=== PATIENT | female | born 1970 | race Caucasian/White ===

== ENCOUNTER 2017-06-03 07:09 | Observation (INO) | payer OTHER ==
--- NOTE | 2017-06-03 06:50 | PDHPUP ---
History & Physical Update H&P update statement: This history and physical update is based on an assessment of the patient which was completed after admission or registration (within 24 hours), but prior to the surgery/procedure. updated
[2017-06-03] MEDS ORDERED: ceFAZolin 2 GM/SWFI 2 GM/20 ML SYR IVP ONE (07:20)
[2017-06-03] MEDS ORDERED: LR 1,000 ML IV ONE (07:21)
[2017-06-03] MEDS ORDERED: LIDOCAINE 1% 2 ML INJ ID PRN (07:21)
[2017-06-03] MEDS ORDERED: BUPIVACAINE 0.5% 30 ML SDV ONE (07:39)
[2017-06-03] MEDS ORDERED: THROMBIN (BOVINE) 5,000 UNIT VIAL TP ONE (07:39)
[2017-06-03] MEDS ORDERED: ACETAMINOPHEN 325 MG TAB PO ONE (08:00)
--- NOTE | 2017-06-03 08:55 | PDANEPAE ---
ANE Past Medical History - Cardiovascular History Hx Hypertension: No Hx Arrhythmias: No Hx Chest Pain: No Hx Coronary Artery / Peripheral Vascular Disease: No Hx CHF / Valvular Disease: No Hx Palpitations: No Cardiovascular History Comment: WHEN LAYING DOWN INTERMITTENT LT. SHLDR/CHEST PAINS LAST 6 MONTHS RANDOM FEELING BY DOCTORS IS RELATED TO WHATS GOING ON WITH HER THYROID - Pulmonary History Hx COPD: No Hx Asthma/Reactive Airway Disease: Yes Hx Recent Upper Respiratory Infection: No Hx Oxygen in Use at Home: No Hx Sleep Apnea: No Sleep Apnea Screening Result - Last Documented: Negative Pulmonary History Comment: ASTHMA TRIGGERS SEVER URI. PNEUMONIOA 2016 - Neurologic History Hx Cerebrovascular Accident: No Hx Seizures: No Hx Dementia: No - Endocrine History Hx Diabetes: No Endocrine History Comment: HYPERTHYROIDISM - Renal History Hx Renal Disorders: No - Liver History Hx Hepatic Disorders: No - Neurological & Psychiatric Hx Hx Neurological and Psychiatric Disorders: No - Cancer History Hx Cancer: No - Congenital Disorder History Hx Congenital Disorders: No - GI History Hx Gastrointestinal Disorders: No Gastrointestinal History Comment: INTERMITTENT REFLUX - Chronic Pain History Chronic Pain: No - Surgical History Prior Surgeries: TUBAL LIGATION . RT KNEE SCOPE. LT KNEE REMVL BURSA. JONAS BREAST AUGMENTATION. TONSILLECTOMY ANE Review of Systems Review of Systems: - Exercise capacity METS (RN): 4 METS ANE Patient History - Allergies Allergies/Adverse Reactions: morphine Allergy (Verified 05/31/17 16:35) Hives/ Severe vomiting - Home Medications Home Medications: Acetaminophen [Tylenol 325mg (*)] 650 mg PO Q6 PRN 05/31/17 [Last Taken 05/30/17 ] Ascorbic Acid [Vitamin C 500 mg (*)] 2,000 mg PO DAILY 05/31/17 [Last Taken 12/12] Methimazole [Northyx] 20 mg PO DAILY 05/31/17 [Last Taken 06/01/17] - NPO status NPO Since - Liquids (Date): 06/02/17 NPO Since - Liquids (Time): 22:00 NPO Since - Solids (Date): 06/02/17 NPO Since - Solids (Time): 19:00 - Smoking Hx Smoking Status: Never smoked ANE Labs/Vital Signs - Vital Signs Blood Pressure: 125/78 Heart Rate: 68 Respiratory Rate: 16 O2 Sat (%): 97 Height: 153.67 cm Weight: 69.853 kg ANE Physical Exam - Airway Mallampati Score: Class 2 - ASA Status ASA Status: II ANE Anesthesia Plan Anesthesia Plan: general endotracheal anesthesia
[2017-06-03] MEDS ORDERED: ROCURONIUM 50 MG/5 ML VIAL ONE (09:08)
[2017-06-03] MEDS ORDERED: DEXAMETHASONE 4 MG/ML VIAL ONE ×3 (09:08→09:33)
[2017-06-03] MEDS ORDERED: ONDANSETRON 4 MG/2 ML VIAL ONE ×3 (09:08→12:26)
[2017-06-03] MEDS ORDERED: LIDOCAINE 2% 100 MG/5 ML SYR ONE (09:08)
[2017-06-03] MEDS ORDERED: fentaNYL 250 MCG/5 ML INJ ONE (09:09)
[2017-06-03] MEDS ORDERED: PROPOFOL 200 MG/20 ML VIAL ONE (09:09)
[2017-06-03] MEDS ORDERED: MIDAZOLAM 2 MG/2 ML VIAL ONE (09:11)
[2017-06-03] MEDS ORDERED: METOCLOPRAMIDE 10 MG/2 ML VIAL ONE (09:33)
[2017-06-03] MEDS ORDERED: THROMBIN (BOVINE) 20,000 UNIT SPRAY TP ONE (10:34)
[2017-06-03] MEDS ORDERED: OXYCODONE/APAP 5/325 TAB PO PRN (10:56)
[2017-06-03] MEDS ORDERED: MEPERIDINE 25 MG/ML SYR IVP PRN (11:08)
[2017-06-03] MEDS ORDERED: NALOXONE HCL 0.4 MG/ML INJ IVP PRN (11:08)
[2017-06-03] MEDS ORDERED: ALBUTEROL 3 ML DEYVIAL IH PRN (11:08)
[2017-06-03] MEDS ORDERED: PROMETHAZINE HCL 25 MG/ML INJ IVP PRN ×2 (11:08→13:44)
--- NOTE | 2017-06-03 11:09 | POSTANESTH ---
Post Anesthetic Evaluation Cardiovascular Status: Normal, Stable Respiratory Status: Normal, Stable Level of Consciousness/Mental Status: Can Participate in Eval Pain Control: Adequate, Prn Tx Ordered Nausea/Vomiting Control: Adequate, Prn Tx Ordered Complications Possibly Related to Anesthesia: None Noted
[2017-06-03] MEDS ORDERED: fentaNYL 100 MCG/2 ML INJ ONE ×3 (11:12→12:18)
[2017-06-03] MEDS: fentaNYL 100 MCG/2 ML INJ IVP PRN ×5 (11:14→12:31)
--- NOTE | 2017-06-03 11:26 | POSTOPPROG ---
Post Op Note Date of Operation: 06/03/17 Surgeon: Ector Faye Magazine Supervisor: Vahid Coburn Anesthesiologist: Dr Abreu Anesthesia: GET(General Endotracheal), IV Sedation Pre-op Diagnosis: hyperparathyroidism Post-op Diagnosis: same Indication: same Procedure: total thyroidectomy Findings: large thyroid Inf/Abcess present in the surg proc area at time of surgery?: No Depth: Organ Space EBL: 50-100 Specimen(s): thyroid
[2017-06-03] MEDS ORDERED: HYDROmorphONE/DILAUDID 1 MG/ML INJ ONE (11:54)
[2017-06-03] MEDS: HYDROmorphONE/DILAUDID 1 MG/ML INJ IVP PRN ×5 (11:55→19:30)
[2017-06-03] MEDS: ONDANSETRON 4 MG/2 ML VIAL IVP PRN ×2 (12:29→12:45)
[2017-06-03] MEDS ORDERED: KETOROLAC 30 MG/1 ML SDV ONE (12:44)
[2017-06-03] MEDS ORDERED: KETOROLAC 30 MG/1 ML SDV IVP ONE (12:45)
[2017-06-03] MEDS: D5W 1/2 NS W/ 20 KCl/L 1,000 ML IV SCH ×2 (14:19→22:26)
--- NOTE | 2017-06-03 21:41 | SOAPPROG ---
SOAP Progress Note Assessment/Plan: Assessment: Postop doing well/Chovstek neg negative/voice okay wound okay Plan: Home in the a.m. 06/03/17 21:39 Objective: Vital Signs Temp Pulse Resp BP Pulse Ox 36.4 C 84 16 103/64 93 06/03/17 19:16 06/03/17 19:16 06/03/17 19:16 06/03/17 19:16 06/03/17 19:16 06/02/17 06/03/17 06/04/17 05:59 05:59 05:59 Intake Total 1100 Output Total 10 Balance 1090 ICD10 Worksheet Patient Problems: Problems Problem Status Onset Hyperthyroidism Acute - ICD10 Problem Qualifiers (1) Hyperthyroidism
[2017-06-03] MEDS: HYDROCODONE/APAP 5/325 TAB PO PRN (22:26)
[2017-06-04] MEDS: HYDROCODONE/APAP 5/325 TAB PO PRN ×4 (04:49→19:40)
--- NOTE | 2017-06-04 05:32 | GOP ---
[f rep st] OPERATIVE REPORT DATE OF OPERATION: 06/03/2017 SURGEON: Ector Faye MD ELEVATOR [employer]CTOR SUPERVISOR: Vahid Coburn PA-C ANESTHESIOLOGIST: Dr. Abreu PREOPERATIVE DIAGNOSIS: Hyperthyroidism. POSTOPERATIVE DIAGNOSIS: Hyperthyroidism. PROCEDURE PERFORMED: Total thyroidectomy. FINDINGS: Patient was found to have benign-appearing goiters of the thyroid with no evidence of any malignancy. DESCRIPTION OF PROCEDURE: Patient was taken to the operating room where she received a satisfactory general endotracheal anesthesia by Dr. Abreu, placed in the supine position, prepped and draped in t he usual sterile fashion. A low collar-type incision was made. Incision was carried through the katie tysma and cutaneus-platysmal flaps were developed to the thyroid cartilage and to the sternal notch. Strap muscle was then divided in the midline and retracted. Both lobes of the thyroid were mobilize d by dividing the middle thyroid vein. Recurrent laryngeal nerves were identified on both sides. Parathyroid glands were dissected away from the thyroid capsule and dissection stayed directly on top of the thyroid capsule. Once the anatomy was delineated, the superior pole on both sides was divide d with the Harmonic scalpel, and the glands were dissected away from the nerve and off the anterior t rachea and to the midline. Hemostasis was carefully obtained, and the gland was removed and sent to Pathology. Hemostasis was assured with hemoclips, electrocautery, and the Harmonic scalpel. The wound was irrigated. Hemostasis was assured. Some topical thrombin was placed in the operative bed. Strap muscles approximated with 3-0 Vicryl. Platysma was closed with 3-0 Vicryl. The wound wa s infiltrated with 0.25% Marcaine. Skin was closed with 4-0 Monocryl subcuticular stitch. There wer e no complications. Blood loss was negligible. She was taken to recovery room in good condition hem ostatic. /[id number]/MODL
[2017-06-04] MEDS ORDERED: KETOROLAC 30 MG/1 ML SDV IVP ONE (10:00)
--- NOTE | 2017-06-04 10:30 | SOAPPROG ---
SOAP Progress Note Assessment/Plan: Assessment: Postop doing well/Chovstek neg negative/voice okay wound okay Plan: Home in the a.m. 06/03/17 21:39 06/04/17 10:29 not feeling great/ wound ok/ chovstek-/ ca 8.7/ will start synthroid Objective: Vital Signs Temp Pulse Resp BP Pulse Ox 36.9 C 64 16 105/63 94 06/04/17 07:14 06/04/17 07:14 06/04/17 07:14 06/04/17 07:14 06/04/17 07:14 06/03/17 06/04/17 06/05/17 05:59 05:59 05:59 Intake Total 1650 Output Total 10 Balance 1640 ICD10 Worksheet Patient Problems: Problems Problem Status Onset Hyperthyroidism Acute - ICD10 Problem Qualifiers (1) Hyperthyroidism
[2017-06-04] MEDS: LEVOTHYROXINE 100 MCG TAB PO SCH (10:40)
[2017-06-04] MEDS: KETOROLAC 15 MG/1 ML SDV IVP SCH ×2 (12:49→17:33)
[2017-06-04] MEDS: HYDROmorphONE/DILAUDID 1 MG/ML INJ IVP PRN (13:45)
--- NOTE | 2017-06-04 14:26 | ASMTCMCOM ---
CM Note CM Note Notes: 06/04/2017 Case Management Note Reviewed chart. There are no case management d/c needs identified d/t pt age, marital status and activity levels prior to admission. There are no PT or OT evals ordered at this time. Case Management d/c poc: Home independent when medically stable with follow up as directed. Case Management available if needs change. Date Signed: 06/04/2017 02:26 PM Electronically Signed By:Sulma Castillo RN
--- NOTE | 2017-06-04 14:36 | ASMTCMCOM ---
CM Note CM Note Notes: 06/04/2017 Case Management Note Pt referred to financial counseling to answer questions regarding insurance coverage. Date Signed: 06/04/2017 02:35 PM Electronically Signed By:Sulma Castillo RN
[2017-06-05] MEDS: KETOROLAC 15 MG/1 ML SDV IVP SCH ×3 (00:47→11:56)
[2017-06-05] MEDS: LEVOTHYROXINE 100 MCG TAB PO SCH (05:32)
[2017-06-05 08:25] VITALS: BP 124/67; PULSE 60; RESP 18; TEMP 98; O2SAT 94
[2017-06-05] MEDS: HYDROCODONE/APAP 5/325 TAB PO PRN (10:13)
--- NOTE | 2017-06-05 13:48 | ASDISCHSUM ---
Discharge Information Plan Status:Home with No Needs Medically Cleared to Leave: Discharge Date:06/05/2017 01:45 PM CM D/C Disposition:Home, Routine, Self-Care ADT D/C Disposition:Home, Routine, Self-Care Projected Discharge Date:06/05/2017 01:45 PM Transportation at D/C:Family Discharge Delay Reason: Follow-Up Date:06/05/2017 01:45 PM Discharge Slot: Final Diagnosis: Placement Information Patient Contact Information Contact Name:AZAM Relationship: Address:[address] [place] [address] Work Phone: City:[place] Alternate Phone: [facility]/Zip Code:[place] [address] Email: Financial Information Financial Class:Sheila Gastelum Primary Plan Desc:SHEILA ALSTON O [facility] Primary Plan Number:[id number] Secondary Plan Desc: Secondary Plan Number: Assessment Information [facility] CM Progress Note CM Note CM Note Notes: 06/04/2017 Case Management Note Reviewed chart. There are no case management d/c needs identified d/t pt age, marital status and activity levels prior to admission. There are no PT or OT evals ordered at this time. Case Management d/c poc: Home independent when medically stable with follow up as directed. Case Management available if needs change. Date Signed: 06/04/2017 02:26 PM Electronically Signed By:Sulma Castillo RN [facility] CM Progress Note CM Note CM Note Notes: 06/04/2017 Case Management Note Pt referred to financial counseling to answer questions regarding insurance coverage. Date Signed: 06/04/2017 02:35 PM Electronically Signed By:Sulma Castillo RN Intervention Information
--- NOTE | 2017-06-05 20:18 | SOAPPROG ---
SOAP Progress Note Assessment/Plan: Assessment:46yo F sp total thyroidectomy On synthroid Pain controlled Dispo: DC home today with f/u in 1-2 weeks. Call with worsening symptoms, questions or concerns. May shower S: feels well today and ready to go home. Pain well-controlled. No swelling of neck, hoarse voice or difficulty swallowing O: laying in bed, comfortable, NAD Neck incision CDI without e/o infection. steris intact No increased WOB Plan: 06/05/17 20:16 Objective: Vital Signs Temp Pulse Resp BP Pulse Ox 36.6 C 60 18 124/67 H 94 06/05/17 08:00 06/05/17 08:00 06/05/17 08:00 06/05/17 08:00 06/05/17 08:00 06/04/17 06/05/17 06/06/17 05:59 05:59 05:59 Intake Total 1650 Output Total 10 Balance 1640 ICD10 Worksheet Patient Problems: Problems Problem Status Onset Hyperthyroidism Acute
== END 2017-06-05 13:45 | disposition home or self-care (01) ==
LOC: F3E 07:09
PROVIDERS: ADMIT Surgery; ATTEND Surgery
PROC: 0GTK0ZZ Resection of Thyroid Gland, Open Approach (ICD-10-PCS; principal; 2017-06-03 09:00)
DX: E05.90 Thyrotoxicosis, unspecified without thyrotoxic crisis or storm (principal); R07.9 Chest pain, unspecified
CPT/HCPCS: 60240; G0378; J0690; J1100; J1170; J1885; J2001; J2250; J2405; J2550; J2704; J2765; J3010